=== PATIENT | male | born 1955 | race Hispanic/Latino ===

== ENCOUNTER 2018-09-09 07:00 | Day surgery (SDC) | payer OTHER ==
[2018-09-07 14:28] VITALS: BP 135/49
[2018-09-07 14:38] LABS: BASOPHILS % (AUTO) 0.7 % (0.0-5.0); EOSINOPHILS % (AUTO) 1.3 % (0.0-8.0); HEMATOCRIT 32.6 % (42-54); LYMPHOCYTES % (AUTO) 31.3 % (21.0-51.0); MEAN CORPUSCULAR HEMOGLOBIN 30.1 pg (27.0-33.0); MEAN CORPUSCULAR HGB CONC 33.4 g/dL (32.0-36.0); MEAN CORPUSCULAR VOLUME 90.1 fL (79-99); MONOCYTES % (AUTO) 5.5 % (3.0-13.0); NEUTROPHILS % (AUTO) 61.2 % (40.0-77.0); NUCLEATED RED BLOOD CELLS 0.1 % (0.0-0.19); PLATELET COUNT (AUTO) 374 K/uL (130-400); RED BLOOD CELL COUNT(AUTO) 3.62 MIL/uL (4.50-6.20); RED CELL DISTRIBUTION WIDTH 13.5 % (11.0-15.5); WHITE BLOOD COUNT (AUTO) 8.6 K/uL (4.8-10.8)
[2018-09-07 14:39] LABS: APPEARANCE,URINE Clear (CLEAR); BILIRUBIN,URINE Negative (NEGATIVE); COLOR,URINE Yellow (YELLOW); GLUCOSE, URINE (UA) Negative (NEGATIVE); KETONES,URINE Negative (NEGATIVE); LEUKOCYTE ESTERASE ,URINE Negative (NEGATIVE); NITRATE,URINE Negative (NEGATIVE); OCCULT BLOOD,URINE Negative (NEGATIVE); PH,URINE 7.5 (5.0-8.0); PROTEIN,URINE Negative (NEGATIVE); UROBILINOGEN,URINE 0.2 mg/dL (0.2-1.0)
[2018-09-07 14:47] LABS: CREATININE 1.2 mg/dL (0.5-1.5); POTASSIUM 4.3 mmol/L (3.5-5.1)
[2018-09-07 14:51] LABS: INR 0.95 (0.85-1.15); PARTIAL THROMBOPLASTIN TIME 25.7 SEC (26.3-35.5)
--- NOTE | 2018-09-08 14:37 | NUR ---
LABS FAXED AND REPORTED ABNORMAL H/H TO MARY CORNELL AT [facility]. SHE WILL Juliana NGUYEN NP.
--- NOTE | 2018-09-08 16:07 | NUR ---
REPORTED ABNORMAL RBC 3.62,HGB 10.9 AND HCT 32.6 TO MATTHEW NGUYEN NP OF DR. PURCELL. NO NEW ORDERS OK TO PROCEED
[2018-09-09] VITALS (11 sets, daily range): BP systolic 105–139; BP diastolic 41–60
[~2018-09-09] VITALS: Ht 172.7 cm; Wt 132.8 kg
[~2018-09-09 07:00] MED LIST: ASPI-555 PO; FERR325T22 PO; GABA-531 PO; LISI1TAB11 PO; MELO-108 PO; METF-444 PO; PARO-37 PO; PENT400T12 PO; ROSU20TA30 PO; TYL3 PO; VITAMIN B12 PO; ZOLP10TA6 PO; [UNRECOGNIZED DRUG - OTHER] PO
[2018-09-09] MEDS ORDERED: SODIUM CHLORIDE 0.9% 1000ML 1,000 ML IV SCH (08:00)
[2018-09-09] MEDS ORDERED: LIDOCAINE HCL 2% 20ML ONE ×2 (11:05→11:17)
[2018-09-09] MEDS ORDERED: IOHEXOL 350 MG/ML 100ML INFUS..BTL IV ONE (11:05)
[2018-09-09] MEDS ORDERED: IOHEXOL-350 50ML VIAL IV ONE (11:05)
[2018-09-09] MEDS ORDERED: NITROGLYCERIN 5 MG/ML 10 ML VIAL IV ONE (11:05)
[2018-09-09] MEDS ORDERED: HEPARIN SODIUM 1000UNIT/ML 10ML VIAL ONE (11:05)
[2018-09-09] MEDS ORDERED: MIDAZOLAM HCL 1 MG/ML 2ML VIAL ONE (11:15)
[2018-09-09] MEDS ORDERED: LIDOCAINE PF 2% 5ML ABBOJECT ONE (11:23)
[2018-09-09] MEDS ORDERED: GLUCAGON 1MG KIT 1 MG ML IM PRN (12:15)
[2018-09-09] MEDS ORDERED: DEXTROSE 50%-WATER 50 ML DISP.SYRIN IV PRN (12:15)
--- NOTE | 2018-09-09 14:27 | NUR ---
REPORT RESUMED CARE FOR PATIENT BY SACHI GAMBLE. PT LIEING IN BED, CONTINUED BEDREST. VS STABLE SPOUSE AT BEDSIDE. RIGHT GROIN D -STAT DRESSING AND LEFT GROIN SMALL DRESSING. NEUROVASCULAR CHECKS WNL
--- NOTE | 2018-09-09 16:44 | NUR ---
DC DC INSTRUCTIONS GIVEN TO PT/ PT SPOUSE, RIGHT GROIN D STAT DRESSING DRY AND INTACT, LEFT GROIN 4X4 GAUZE DRESSING DRY AND INTACT, NEUROVASCULAR CHECKS TO BLE. PT AWAKE AND ALERT , DENIES ANY PAIN OR DISCOMFORTS. INSTRUCTED TO F/U WITH DR. CRAFT IN 1 WEEK, PIV REMOVED, CATHETER INTACT, SITE ASYMPTOMATIC.
--- NOTE | 2018-09-09 17:05 | NUR ---
DC PT DC HOME VIA WC, NO DISTRESS NOTED. ACCOMPANIED BY SPOUSE
== END 2018-09-09 17:05 | disposition home or self-care (01) ==
LOC: DAH 07:00
PROVIDERS: ATTEND Internal Medicine Cardiovascular Disease
DX: I35.0 Nonrheumatic aortic (valve) stenosis (principal); E11.51 Type 2 diabetes mellitus with diabetic peripheral angiopathy without gangrene; Z85.46 Personal history of malignant neoplasm of prostate; E78.5 Hyperlipidemia, unspecified; I10 Essential (primary) hypertension; I45.19 Other right bundle-branch block; Z79.899 Other long term (current) drug therapy; Z98.890 Other specified postprocedural states; Z79.01 Long term (current) use of anticoagulants
CPT/HCPCS: 36415; 71046; 80048; 81003; 82948 ×2; 85025; 85610; 85730; 93460; A4606; C1760; C1769; C1893; C1894 ×3; J1644; J2001; J2250; J3490 ×2; J7030; Q9967 ×2; 99156; 99157

== ENCOUNTER 2019-08-26 07:08 | Day surgery (SDC) | payer OTHER ==
[2019-08-24 14:22] VITALS: BP 128/52
[2019-08-24 14:30] LABS: BASOPHILS % (AUTO) 0.7 % (0.0-5.0); EOSINOPHILS % (AUTO) 1.3 % (0.0-8.0); HEMATOCRIT 34.3 % (42-54); LYMPHOCYTES % (AUTO) 27.1 % (21.0-51.0); MEAN CORPUSCULAR HEMOGLOBIN 28.9 pg (27.0-33.0); MEAN CORPUSCULAR HGB CONC 32.1 g/dL (32.0-36.0); NEUTROPHILS % (AUTO) 63.6 % (40.0-77.0); PLATELET COUNT (AUTO) 355 K/uL (130-400); RED BLOOD CELL COUNT(AUTO) 3.81 MIL/uL (4.50-6.20); RED CELL DISTRIBUTION WIDTH 13.8 % (11.0-15.5); WHITE BLOOD COUNT (AUTO) 8.6 K/uL (4.8-10.8)
[2019-08-24 14:32] LABS: APPEARANCE,URINE Clear (CLEAR); BILIRUBIN,URINE Negative (NEGATIVE); COLOR,URINE Yellow (YELLOW); GLUCOSE, URINE (UA) Negative (NEGATIVE); KETONES,URINE Negative (NEGATIVE); LEUKOCYTE ESTERASE ,URINE Negative (NEGATIVE); NITRATE,URINE Negative (NEGATIVE); OCCULT BLOOD,URINE Negative (NEGATIVE); PROTEIN,URINE Negative (NEGATIVE); UROBILINOGEN,URINE 0.2 mg/dL (0.2-1.0)
[2019-08-24 14:40] LABS: CREATININE 1.2 mg/dL (0.5-1.5); POTASSIUM 4.7 mmol/L (3.5-5.1)
[2019-08-24 14:42] LABS: INR 0.95 (0.85-1.15); PARTIAL THROMBOPLASTIN TIME 25.6 SEC (26.3-35.5)
--- NOTE | 2019-08-25 13:18 | NUR ---
PER NABOR PRADO, IS AWARE OF ABNORMAL LABS NO NEW ORDERS AT THIS TIME.
[2019-08-26] VITALS (8 sets, daily range): BP systolic 105–150; BP diastolic 36–66
[~2019-08-26] VITALS: Ht 170.2 cm; Wt 127.1 kg
[~2019-08-26 07:08] MED LIST changes: -GABA-531 PO; -LISI1TAB11 PO; +LISI1TAB28 PO; -MELO-108 PO; -PENT400T12 PO; +PENT400T72 PO; -ROSU20TA30 PO; +ROSU20TA31 PO; +SILD20TA14 PO; -TYL3 PO; -[UNRECOGNIZED DRUG - OTHER] PO; +leg cramps PO
[2019-08-26] MEDS ORDERED: SODIUM BICARB 50MEQ 50ML VIAL ONE (08:56)
[2019-08-26] MEDS ORDERED: IODIXANOL 320 MG/ML 100 ML VIAL ONE (08:56)
[2019-08-26] MEDS ORDERED: NITROGLYCERIN 2 MG/VIAL VIAL IV ONE (08:56)
[2019-08-26] MEDS ORDERED: HEPARIN SODIUM 1000UNIT/ML 10ML VIAL ONE (08:56)
[2019-08-26] MEDS ORDERED: MIDAZOLAM HCL 1 MG/ML 2ML VIAL ONE (08:57)
[2019-08-26] MEDS ORDERED: FENTANYL CITRATE PF 50 MCG/1 ML 2ML VIAL ONE (08:57)
[2019-08-26] MEDS ORDERED: LIDOCAINE HCL 2% 20ML ONE (08:57)
--- NOTE | 2019-08-26 14:10 | NUR ---
REPORT RECEIVED REPORT FROM ALYSSA VARGAS RN AT BEDSIDE USING SBAR. DRESSING TO RIGHT GROIN IS DRY/INTACT. NO HEMATOMA NOTED, AREA SOFT/NONTENDER.
--- NOTE | 2019-08-26 15:05 | NUR ---
PATIENT DISCHARGED PATIENT DISCHARGED FROM FACILITY VIA WHEELCHAIR AND TAKEN TO VEHICLE DRIVEN BY SPOUSE.
== END 2019-08-26 15:05 | disposition home or self-care (01) ==
LOC: DAH 07:08
PROVIDERS: ATTEND Internal Medicine Cardiovascular Disease
DX: I70.213 Atherosclerosis of native arteries of extremities with intermittent claudication, bilateral legs (principal); E11.51 Type 2 diabetes mellitus with diabetic peripheral angiopathy without gangrene; I10 Essential (primary) hypertension; E66.9 Obesity, unspecified; E78.5 Hyperlipidemia, unspecified; Z87.891 Personal history of nicotine dependence; Z90.79 Acquired absence of other genital organ(s); Z68.41 Body mass index [BMI] 40.0-44.9, adult; Z91.09 Other allergy status, other than to drugs and biological substances; Z88.1 Allergy status to other antibiotic agents; Z88.8 Allergy status to other drugs, medicaments and biological substances; Z79.82 Long term (current) use of aspirin; Z79.899 Other long term (current) drug therapy; Z79.84 Long term (current) use of oral hypoglycemic drugs; Z79.01 Long term (current) use of anticoagulants; Z98.890 Other specified postprocedural states; Z85.46 Personal history of malignant neoplasm of prostate; Z83.3 Family history of diabetes mellitus; Z80.9 Family history of malignant neoplasm, unspecified; Z82.49 Family history of ischemic heart disease and other diseases of the circulatory system
CPT/HCPCS: 36247; 36415; 71045; 75716; 80048; 81003; 82948; 85025; 85610; 85730; 93005; A4215; A4216; A4221; A4222; A4223 ×3; A4606; A4663; C1760 ×2; C1769; C1894 ×2; J1644; J2250; J3010; J3490 ×3; Q9967; 99156; 99157

== ENCOUNTER 2021-05-30 08:07 | Day surgery (SDC) | payer OTHER ==
[2021-05-23 13:13] LABS: BASOPHILS % (AUTO) 0.6 % (0.0-5.0); EOSINOPHILS % (AUTO) 3.7 % (0.0-8.0); HEMATOCRIT 38.6 % (42-54); LYMPHOCYTES % (AUTO) 28.2 % (21.0-51.0); MEAN CORPUSCULAR HEMOGLOBIN 29.4 pg (27.0-33.0); MEAN CORPUSCULAR HGB CONC 31.3 g/dL (32.0-36.0); MEAN CORPUSCULAR VOLUME 93.9 fL (79-99); MONOCYTES % (AUTO) 6.4 % (3.0-13.0); NEUTROPHILS % (AUTO) 60.5 % (40.0-77.0); PLATELET COUNT (AUTO) 278 K/uL (130-400); RED BLOOD CELL COUNT(AUTO) 4.11 MIL/uL (4.50-6.20)
[2021-05-23 13:14] LABS: APPEARANCE,URINE Clear (CLEAR); BILIRUBIN,URINE Negative (NEGATIVE); COLOR,URINE Yellow (YELLOW); GLUCOSE, URINE (UA) >=1000 mg/dL (NEGATIVE); KETONES,URINE Negative (NEGATIVE); LEUKOCYTE ESTERASE ,URINE Negative (NEGATIVE); NITRATE,URINE Negative (NEGATIVE); OCCULT BLOOD,URINE Negative (NEGATIVE); PROTEIN,URINE Negative (NEGATIVE); UROBILINOGEN,URINE 0.2 mg/dL (0.2-1.0)
[2021-05-23 13:27] LABS: INR 0.94 (0.85-1.15); PROTHROMBIN TIME 10.3 SEC (9.6-11.6)
[2021-05-23 13:29] LABS: BACTERIA,URINE Rare /HPF (None Seen); RBC,URINE 0-1 /HPF (0-1); SQUAMOUS EPITHELIAL CELL,UR Rare /HPF (0-2); WBC,URINE 0-1 /HPF (0-1)
[2021-05-23 13:29] LABS: CREATININE 1.1 mg/dL (0.5-1.5); PARTIAL THROMBOPLASTIN TIME 25.6 SEC (26.3-35.5); POTASSIUM 4.6 mmol/L (3.5-5.1)
[2021-05-29 09:30] VITALS: BP 147/59
[2021-05-30] VITALS (10 sets, daily range): BP systolic 105–154; BP diastolic 56–73
[~2021-05-30] VITALS: Ht 170.2 cm; Wt 123.4 kg
[~2021-05-30 08:07] MED LIST changes: +0.9% NACL 500ML IV.SOLN 500 ML IV SCH; +ASCO100031 PO; +ASPI-1121 PO; -ASPI-555 PO; +ASPI-556 PO; +CELE-84 PO; +CHOL100040 PO; +CYAN250010 PO; +EMPA1TAB19 PO; -LISI1TAB28 PO; +LISI1TAB51 PO; -METF-444 PO; +MIRA25TA PO; +MULT-1289 PO; -SILD20TA14 PO; +TADA20TA PO; -VITAMIN B12 PO; -leg cramps PO
[2021-05-30] MEDS ORDERED: 0.9%NACL 1000ML 1,000 ML IV ONE (09:11)
[2021-05-30] MEDS ORDERED: SODIUM BICARB 50MEQ 50ML VIAL 50 ML ONE (10:37)
[2021-05-30] MEDS ORDERED: BIVALIRUDIN 250 MG/VIAL IV ONE (10:37)
[2021-05-30] MEDS ORDERED: NICARDIPINE 25MG INJ IV ONE (10:38)
[2021-05-30] MEDS ORDERED: NITROGLYCERIN 50MG VIAL IV ONE (10:38)
[2021-05-30] MEDS ORDERED: HEPARIN 10,000 UNIT/10ML (1,000 UNIT/ML) VIAL ONE (10:38)
[2021-05-30] MEDS ORDERED: LIDOCAINE HCL 400MG/20ML VIAL ONE (10:38)
[2021-05-30] MEDS ORDERED: IOHEXOL 350 MG/ML 100ML INFUS..BTL IV ONE (10:38)
[2021-05-30] MEDS ORDERED: IOHEXOL-350 50ML VIAL IV ONE (10:38)
[2021-05-30] MEDS ORDERED: MIDAZOLAM HCL 1 MG/ML 2ML VIAL ONE (11:11)
[2021-05-30] MEDS ORDERED: FENTANYL CITRATE PF 50 MCG/1 ML 2ML VIAL ONE (11:11)
[2021-05-30] MEDS ORDERED: 0.9%NACL 1000ML 1,000 ML IV SCH (12:00)
[2021-05-30] MEDS ORDERED: ACETAMINOPHEN WITH CODEINE 1 TAB TAB ONE (13:28)
[2021-05-30] MEDS ORDERED: ACETAMINOPHEN WITH CODEINE 1 TAB TAB PO SCH (14:00)
== END 2021-05-30 16:40 | disposition home or self-care (01) ==
LOC: DAH 08:07
PROVIDERS: ATTEND Internal Medicine Cardiovascular Disease
DX: I35.0 Nonrheumatic aortic (valve) stenosis (principal); I25.10 Atherosclerotic heart disease of native coronary artery without angina pectoris; I45.10 Unspecified right bundle-branch block; I10 Essential (primary) hypertension; E11.9 Type 2 diabetes mellitus without complications; E66.9 Obesity, unspecified; E78.5 Hyperlipidemia, unspecified; Z98.890 Other specified postprocedural states; Z82.49 Family history of ischemic heart disease and other diseases of the circulatory system; Z85.46 Personal history of malignant neoplasm of prostate; Z87.891 Personal history of nicotine dependence; Z68.41 Body mass index [BMI] 40.0-44.9, adult; Z79.01 Long term (current) use of anticoagulants; Z79.899 Other long term (current) drug therapy
CPT/HCPCS: 36415; 71045; 80048; 81001; 82948 ×2; 85025; 85610; 85730; 93005; 93454; A4215; A4216; A4221; A4222; A4223 ×3; A4606; A4663; C1769; C1894; J1644 ×2; J2250; J3010; J3490 ×4; J7030 ×2; Q9965; Q9967; 99156; 99157; J0583